=== PATIENT | female | born 1965 | race Caucasian/White ===

== ENCOUNTER 2018-11-06 12:52 | Emergency (ER) | payer MEDICAID ==
[~2018-11-06] VITALS: Ht 157.5 cm; Wt 63.6 kg
[~2018-11-06 12:52] MED LIST: OLAN5TAB3 PO
--- NOTE | 2018-11-06 13:40 | NUR ---
PT IS 53 YO FEMALE C/O HEARING VOICES, HAS INCREASED PAST 2 WEEKS, DENIES SUICIDAL/HOMICIDAL THOUGHTS, STARTED ON LATUDA 4 DAYS AGO, PT IS CALM AND COOPERATIVE, FAMILY AT BEDSIDE, PT LIVES WITH HER BOYFRIEND. LAST NIGHT THE VOICES [facility] [place] [facility] [place] SP[facility] THE [facility]. PT HAS FOLLOW UP APPT IN 1-2 WEEKS TO SEE IF MEDICATION IS WORKING
[2018-11-06 14:23] LABS: CLARITY,URINE SLIGHTLY CLOUDY (Clear); COLOR,URINE YELLOW (Yellow); GLUCOSE, URINE NEGATIVE (Neg); KETONES,URINE TRACE mg/dl (Neg); LEUKOCYTE ESTERASE ,URINE NEGATIVE (Neg); NITRITES, URINE NEGATIVE (Neg); OCCULT BLOOD,URINE NEGATIVE (Neg); PH,URINE 8.5 (4.8-8.0); PROTEIN,URINE NEGATIVE (Neg); UA COLLECTION TYPE CLN CATCH MIDSTREAM; UROBILINOGEN,URINE 0.2 E.U/dL (0.2-1.0)
[2018-11-06 14:33] LABS: URINE AMPHETAMINE SCREEN NEGATIVE (Neg); URINE BARBITUATE SCREEN NEGATIVE (Neg); URINE BENZODIAZEPINES SCREEN POSITIVE (Neg); URINE CANNABINOID SCREEN NEGATIVE (Neg); URINE COCAINE SCREEN NEGATIVE (Neg); URINE METHADONE SCREEN NEGATIVE (Neg); URINE OPIATE SCREEN NEGATIVE (Neg); URINE PHENCYCLIDINE SCREEN NEGATIVE (Neg)
[2018-11-06 14:43] LABS: BACTERIA,URINE FEW /HPF (Neg); MUCUS STRANDS FEW /LPF (Neg); RBC,URINE 0-2 /HPF (0-2); SQUAMOUS EPITHELIAL CELL,UR MANY /LPF (FEW); WBC,URINE 0-4 /HPF (0-4)
--- NOTE | 2018-11-06 14:45 | NUR ---
PT CONTINUES TO REST QUIETLY WITH FAMILY AT BEDSIDE
[2018-11-06 15:34] LABS: BASOPHILS # (AUTO) 0.1 X10'3 (0-0.2); BASOPHILS % (AUTO) 0.9 % (0-1); EOSINOPHILS # (AUTO) 0.1 X10'3 (0-0.9); HEMOGLOBIN 13.4 g/dl (12.0-16.0); LYMPHOCYTES # (AUTO) 1.3 X10'3 (1.1-4.8); LYMPHOCYTES % (AUTO) 18.2 % (21-51); MEAN CORPUSCULAR HEMOGLOBIN 30.4 PG (27.0-31.0); MEAN CORPUSCULAR HGB CONC 33.4 % (33.0-36.5); MEAN PLATELET VOLUME 7.8 FL (7.4-10.4); MONOCYTES # (AUTO) 0.4 X10'3 (0-0.9); MONOCYTES % (AUTO) 6.2 % (2-12); NEUTROPHILS # (AUTO) 5.2 X10'3 (1.8-7.7); NEUTROPHILS % (AUTO) 72.7 % (42-75); PLATELET COUNT 370 X10'3 (140-440); WHITE BLOOD COUNT 7.2 X10'3 (4.5-11.0)
--- NOTE | 2018-11-06 15:45 | NUR ---
PT RESTING QUIETLY ON GURNEY
[2018-11-06 15:53] LABS: ALANINE AMINOTRANSFERASE 19 U/L (12-78); ALKALINE PHOSPHATASE 67 IU/L (46-116); ANION GAP 10 (8-16); ASPARTATE AMINO TRANSFERASE 13 U/L (10-37); BILIRUBIN,TOTAL 0.3 MG/DL (0.1-1.0); BLOOD UREA NITROGEN 10 MG/DL (7-18); BUN/CREATININE RATIO 12.3 (6.6-38.0); CALCIUM 8.8 MG/DL (8.5-10.1); CHLORIDE 102 MMOL/L (99-107); CREATININE 0.81 MG/DL (0.40-0.90); ETHANOL < 0.010 GM/DL (0.0-0.010); GLUCOSE 96 MG/DL (70-104); POTASSIUM 3.2 MMOL/L (3.5-5.1); SODIUM 139 MMOL/L (135-145); TOTAL CARBON DIOXIDE 26.6 MMOL/L (24-32); eGFR 74 ML/MIN
--- NOTE | 2018-11-06 16:45 | NUR ---
pt is resting quietly on gurney
[2018-11-06] MEDS ORDERED: LURA80TA3 PO (17:22)
[2018-11-06] MEDS ORDERED: TRAZ150T78 PO (17:22)
[2018-11-06] MEDS ORDERED: ALPR-624 PO (17:22)
[2018-11-06] MEDS ORDERED: DULO-31 PO (17:22)
--- NOTE | 2018-11-06 17:46 | NUR ---
REPORT GIVEN TO TELEPSYCH PROVIDER
--- NOTE | 2018-11-06 18:09 | NUR ---
PT MOVED TO OVERFLOW
--- NOTE | 2018-11-06 18:16 | NUR ---
REPORT GIVEN TO RN IN OVERFLOW, TELEPSYCH PROVIDER RECOMMENDS TRANSFERRING PT TO PSYCH FACILITY, WAITING FOR HER TO FAX REPORT
--- NOTE | 2018-11-06 19:50 | NUR ---
PT fiance at bedside, then sitting on bed. When instructed of ED-OF bed policy and visiting hours, became upset and cursed at this quality analyst/technical writer.
[2018-11-06] MEDS: traZODone 150mg tablet PO SCH (21:43)
[2018-11-06] MEDS: LORazepam 0.5 MG tablet PO PRN (21:44)
[2018-11-06] MEDS: lurasidone 20mg tablet PO SCH (21:44)
--- NOTE | 2018-11-06 21:57 | NUR ---
PT GIVEN ATIVAN FOR SLEEP ORDERED.
--- NOTE | 2018-11-06 22:07 | NUR ---
Packet sent to [facility].
--- NOTE | 2018-11-06 22:37 | NUR ---
HAVING PROBLEMS SLEEPING DUE TO NEIGHBOR'S AGGITATION.
--- NOTE | 2018-11-07 07:00 | NUR ---
Pt is in bed, appears to be sleeping.
--- NOTE | 2018-11-07 07:00 | NUR ---
Shelly quesada in [facility] - 11/07/18 at 0840 by JEANNE Pt got up to use the bathroom, then went back to bed.
--- NOTE | 2018-11-07 08:42 | NUR ---
Pt awake, denies depression at this time, states she is just tired, denies AH this am, states that she did hear some voices last night before she took her meds.
[2018-11-07] MEDS: duloxetine 30mg CAPSULE.DR PO SCH ×2 (08:48→08:49)
[2018-11-07] MEDS ORDERED: potassium chloride 10mEq CAPSULE.SA PO SCH (09:10)
--- NOTE | 2018-11-07 09:10 | NUR ---
Notified of K level of 3.2 yesterday, order given for KCL 40 mEq PO once.
[2018-11-07] MEDS ORDERED: potassium Cl 20 mEq SR tablet PO ONE (09:13)
[2018-11-07] MEDS ORDERED: potassium Cl oral solution 20 MEQ/15 ML PO ONE (10:25)
--- NOTE | 2018-11-07 11:10 | NUR ---
Pt lying in bed with eyes closed, appears to be sleeping.
--- NOTE | 2018-11-07 12:02 | NUR ---
Pt's mello Sharif here visiting.
--- NOTE | 2018-11-07 14:00 | NUR ---
Pt being evaluated by SCMmello at bedside.
--- NOTE | 2018-11-07 14:15 | NUR ---
[facility] will continue pt on 5150 hold, pt indicates that she would like to go upstairs or to [facility].
[2018-11-07] MEDS: LORazepam 0.5 MG tablet PO PRN ×2 (14:25→19:57)
--- NOTE | 2018-11-07 14:26 | NUR ---
Pt c/o having a "panic attack" due to the voices being loud and persistent, states the voices tell her things like not to brush her teeth because her insurance won't pay for it or not to go to the bathroom. Medicated pt with prn Ativan 0.5 mg, provided therapeutic conversation, attempted distraction techniques by offering pt some reading or coloring material, pt chose a magazine. Carlos left for a few minutes after [facility] eval but is back now visiting with pt.
[2018-11-07] MEDS: nicotine 21mg patch - 24 hr TD SCH (15:24)
--- NOTE | 2018-11-07 15:30 | NUR ---
Pt stated that she vapes all day and each puff is 3 mg, order obtained for Nicotine patch 21 mg daily, applied to left shoulder.
--- NOTE | 2018-11-07 17:14 | NUR ---
Pt c/o heartburn, states she normally takes Prilosec 40 mg daily, obtained order for Prilosec 40 mg to start now from Dr Jorge. Per pharmacy, Prilosec is nonformulary, instructed to substitute Protonix 40 mg.
[2018-11-07] MEDS: pantoprazole 40mg Tablet.DR PO SCH (17:22)
--- NOTE | 2018-11-07 18:29 | NUR ---
Report rec'd, [facility]. Eating dinner currently. Family at bedside.
--- NOTE | 2018-11-07 18:50 | NUR ---
Patient is requesting medication for her hallucinations and an additional dose of ativan. These requests were endorsed to ABELINO Cain, who states she will review the chart. Above endorsed to patient and family at bedside.
--- NOTE | 2018-11-07 18:53 | NUR ---
PT's fiance, apologized to this telegraphic typewriter operator for yesterday's outburst.
--- NOTE | 2018-11-07 19:18 | NUR ---
Sitting up in bed, reading. Family continues at bedside. Awaiting ERP orders, will monitor.
--- NOTE | 2018-11-07 19:24 | NUR ---
Rec'd call from Zoya @ [facility] requesting new K+ level and TSH--both ordered for the am @ 0600, this was endorsed to Zoya, she requests results to be faxed when obtained. Will endorse in am nursing report.
--- NOTE | 2018-11-07 19:55 | NUR ---
Family at bedside, medications administered. Requested PRN ativan, and it was given. Calm without further complaints at this time.
[2018-11-07] MEDS: traZODone 150mg tablet PO SCH (19:56)
[2018-11-07] MEDS: lurasidone 20mg tablet PO SCH (19:57)
--- NOTE | 2018-11-07 20:32 | NUR ---
While family was at bedside, patient was calm and reading without any obvious distress from internal stimuli/hallucinations. Within minutes of family leaving, patient grabbed her head, and started shouting "stop, just stop, leave me alone", "stop talking to me", "leave me alone". "knock it off, it's not real, leave me alone". Another patient in the unit told patient to "shut up", patient responded with "they're are hallucinations, I can't help it", and immediately layed calm in her bed without further vocalizations.
--- NOTE | 2018-11-07 20:59 | NUR ---
Patient noted verbalizing that she is continuing to have hallucinations, yelling out at the hallucinations to "stop, you're not real", appears very aware of those around her paying attention, and when behaviors, hallucinations not validated, patient becomes louder until she stops and turns over in the bed.
--- NOTE | 2018-11-07 22:00 | NUR ---
Resting in bed, continues to appear to sleep comfortably. Will monitor.
--- NOTE | 2018-11-07 22:57 | NUR ---
Laying in bed, eyes closed, resp are even and unlabored, appears to sleep. Will continue to monitor.
--- NOTE | 2018-11-07 23:56 | NUR ---
Laying in bed, eyes closed, resp are even and unlabored, appears to sleep. Will continue to monitor.
--- NOTE | 2018-11-08 00:58 | NUR ---
Rec'd call from [facility] requesting a TSH and HcG. Informed [facility] that the TSH will be drawn with AM labs and this ad copy writer will request a fresh UA from the pt for the HcG.
--- NOTE | 2018-11-08 01:28 | NUR ---
Up to [facility], obtained urine for HCG. Denies needs at this time. No verbalizations of hallucinations noted. Will continue to monitor.
[2018-11-08 01:29] LABS: URINE HCG NEGATIVE (NEG)
--- NOTE | 2018-11-08 02:45 | NUR ---
Resting in bed, appearing to sleep, will monitor.
--- NOTE | 2018-11-08 04:23 | NUR ---
Resting in bed, appearing to sleep, will monitor.
--- NOTE | 2018-11-08 05:03 | NUR ---
Sitting up in bed, calm, denies needs. Vitals taken. Will monitor.
--- NOTE | 2018-11-08 07:03 | NUR ---
TRANSITIONS MANAGER IN TO DRAW BLOOD.
[2018-11-08] MEDS: duloxetine 30mg CAPSULE.DR PO SCH ×2 (07:43→07:44)
[2018-11-08] MEDS: pantoprazole 40mg Tablet.DR PO SCH (07:43)
[2018-11-08] MEDS: nicotine 21mg patch - 24 hr TD SCH (07:44)
[2018-11-08 08:00] LABS: ALANINE AMINOTRANSFERASE 16 U/L (12-78); ALBUMIN 3.2 G/DL (3.4-5.0); ALBUMIN/GLOBULIN RATIO 0.9 (1.1-1.5); ALKALINE PHOSPHATASE 54 IU/L (46-116); ANION GAP 6 (8-16); ASPARTATE AMINO TRANSFERASE 10 U/L (10-37); BILIRUBIN,TOTAL 0.2 MG/DL (0.1-1.0); BLOOD UREA NITROGEN 14 MG/DL (7-18); BUN/CREATININE RATIO 16.7 (6.6-38.0); CALCIUM 8.6 MG/DL (8.5-10.1); CHLORIDE 107 MMOL/L (99-107); CREATININE 0.84 MG/DL (0.40-0.90); GLUCOSE 94 MG/DL (70-104); POTASSIUM 3.8 MMOL/L (3.5-5.1); SODIUM 140 MMOL/L (135-145); TOTAL CARBON DIOXIDE 26.9 MMOL/L (24-32); TOTAL PROTEIN 6.6 G/DL (6.4-8.2); eGFR 71 ML/MIN
[2018-11-08] MEDS: LORazepam 0.5 MG tablet PO PRN ×2 (09:14→17:56)
--- NOTE | 2018-11-08 09:26 | NUR ---
ADMIN ATIVAN REQUESTED BY PT. LAB RESULTS BACK AND FAXED TO WENDY Z[facility]ALA.
--- NOTE | 2018-11-08 12:00 | NUR ---
PT'S SIGNIFICANT OTHER AT BEDSIDE TO VISIT.
--- NOTE | 2018-11-08 12:45 | NUR ---
PT'S SIGNIFICANT OTHER LEAVES, GIVES US HIS PHONE NUMBER AND WANTS US TO CALL HIM IF PT GETS TRANSFERRED TO [facility] TODAY.
--- NOTE | 2018-11-08 14:18 | NUR ---
NURSE TO NURSE REPORT TO CALEB ZAVALA.
--- NOTE | 2018-11-08 16:30 | NUR ---
CARL BENITEZ IN ROOM CONVERSING WITH PT FOR COMPANY.
--- NOTE | 2018-11-08 16:46 | NUR ---
[facility] IS CALLED TO CHECK ON STATUS OF PT'S ROOM AT THE [facility] IN [facility]. PT WILL GET A ROOM SOON THERE IS A DISCHARGE WHICH WILL PROBABLY BE TOMORROW.
--- NOTE | 2018-11-08 17:19 | NUR ---
PT GIVEN A MESSAGE FROM HER SISTER TO CALL HER WHEN THERE IS A PHONE AVAILABLE.
--- NOTE | 2018-11-08 17:57 | NUR ---
PT IS FREINDLY AND TALKING TO THE TECHS. ASKING ABOUT IF SHE CAN HAVE HER ATIVAN. ADMIN ORDERED.
--- NOTE | 2018-11-08 19:00 | NUR ---
Client awake at COS. Pleasant, compliant with medications. Responding to internal stimuli, AEB laughing to self. Reports hearing voices that tell her to "do things". Visit with boyfriend of eight years. Denies any pain or discomfort.
[2018-11-08] MEDS: lurasidone 20mg tablet PO SCH (20:22)
[2018-11-08] MEDS: traZODone 150mg tablet PO SCH (20:22)
--- NOTE | 2018-11-08 22:21 | NUR ---
Resting, eye's closed. Resp even and unlabored.
--- NOTE | 2018-11-08 23:08 | NUR ---
Resting, eye's closed. Resp even and unlabored.
--- NOTE | 2018-11-09 01:00 | NUR ---
Resting in bed, eye's closed. Respirations even and unlabored.
--- NOTE | 2018-11-09 02:59 | NUR ---
Resting in bed, eye's closed. No obvious distress. Respirations even and unlabored.
--- NOTE | 2018-11-09 05:09 | NUR ---
Vital Signs, client is cooperative. No distress, resp even and unlabored.
[2018-11-09] MEDS: nicotine 21mg patch - 24 hr TD SCH (07:50)
[2018-11-09] MEDS: pantoprazole 40mg Tablet.DR PO SCH (07:54)
[2018-11-09] MEDS: duloxetine 30mg CAPSULE.DR PO SCH ×2 (07:54→08:22)
--- NOTE | 2018-11-09 08:00 | NUR ---
Patient sitting at bedside eating breakfast
[2018-11-09] MEDS ORDERED: duloxetine 30mg CAPSULE.DR PO SCH (08:45)
[2018-11-09] MEDS: LORazepam 0.5 MG tablet PO PRN (12:41)
--- NOTE | 2018-11-09 15:12 | NUR ---
Talked with MD Jorge about the pt and that she is having auditory hallucinations about needing to "leave the house". MD Jorge came over and looked over the pt's telepsych report. states he will order 20mg PO Geodon now and a dose of this BID. will start this once the order is in the computer.
[2018-11-09] MEDS ORDERED: ziprasidone 20mg capsule PO ONE (15:20)
--- NOTE | 2018-11-09 16:40 | NUR ---
Labile mood noted throughout the day. Patient exhibits tearfulness, crying because she feels scared about "what is going to happen to me. The voices tell me to leave that house right now. Right now. Where am I supposed to go? I can't stop the voices. They want me out of the house." Boyfriend here to visit. Patient unhappy during visit. Believes boyfriend "is paying attention to everyone but me and I'm the one he needs to care about." Spoke easily with staff in a calm and pleasant manner. 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 Patient gave up her apartment to live with new boyfriend and has been there for the past nine years. Last year patient began "hearing voices telling her to leave this house." She was subsequently hospitalized in a psychiatric hospital and diagnosed as schizophrenic and bipolar. Patient was placed on Cymbalta. She has been on this medication since March without relief. [facility] called for a nurse to nurse report. [facility] called to say patient had been accepted there and will be picked up at 1700.
--- NOTE | 2018-11-09 17:31 | NUR ---
pt is going to [facility] in [place]. Transporter is here for her. getting her a change of clothes and sending her now. Karthik has her original 5150 and is taking her over.
[2018-11-09 17:33] VITALS: BP 108/69
== END 2018-11-09 17:42 ==
LOC: ER 12:53
DX: F32.9 Major depressive disorder, single episode, unspecified (principal); F41.9 Anxiety disorder, unspecified; H92.01 Otalgia, right ear; Z56.0 Unemployment, unspecified; Z88.2 Allergy status to sulfonamides
CPT/HCPCS: 36415; 80053; 80305; 80320; 81001; 81025; 84443; 85025; 99285